=== PATIENT | male | born 1960 | race Caucasian/White ===

== ENCOUNTER 2017-12-21 14:41 | Emergency (ER) | payer MEDICARE, OTHER ==
[~2017-12-21] VITALS: Ht 185.4 cm; Wt 77.1 kg
[2017-12-21 16:10] LABS: Basophils # (auto) 0.1 uL; Eosinophils # (auto) 0.2 uL; Hemoglobin 8.2 g/dL (13.5-17.5); Lymphocytes # (auto) 1.5 uL; Mean Corpuscular Volume 89.7 fL (80.0-100.0); Monocytes # (auto) 0.4 uL; Red Blood Cells 2.65 10^6/uL (4.5-5.90); White Blood Cell 6.4 10^3/uL (4.4-10.8)
[2017-12-21 16:13] LABS: Basophils % (auto) 1.1 % (0.0-2.0); Eosinophils % (auto) 3.1 % (0.0-7.0); Hematocrit 23.8 % (41.0-53.0); Lymphocytes % (auto) 23.4 % (10.0-50.0); Mean Corpuscular Hemoglobin 30.9 pg (28.0-32.0); Mean Corpuscular Hgb Conc. 34.5 g/dL (32.0-36.0); Monocytes % (auto) 6.8 % (0.0-12.0); Neutrophils # (auto) 4.2 uL; Neutrophils % (auto) 65.6 % (37.0-80.0); Platelet Count (auto) 355 10^3/uL (140-450); Red Cell Distribution Width 16.5 % (11.8-14.3)
[2017-12-21 16:23] LABS: INR 0.98 (0.9-1.15); Partial Thromboplastin Time 24.5 sec (23.78-33.04); Prothrombin Time 10.5 sec (9.27-12.13)
[2017-12-21 17:34] LABS: Albumin 3.4 g/dL (3.4-5.0); Calcium 9.4 mg/dL (8.5-10.1); Potassium 4.4 mmol/L (3.5-5.1)
[2017-12-21 17:42] LABS: Bilirubin, Total 0.5 mg/dL (0.2-1.0); Total Protein 6.6 g/dL (6.4-8.2)
[2017-12-21] MEDS ORDERED: ONDANSETRON HCL 4 MG/2 ML VIAL ONE (17:59)
[2017-12-21] MEDS ORDERED: MORPHINE SULF INJ 2 MG/ML SYRINGE 1ML ONE (17:59)
[2017-12-21] MEDS ORDERED: MORPHINE SULF INJ 2 MG/ML SYRINGE 1ML IV ONE (18:00)
[2017-12-21] MEDS ORDERED: ONDANSETRON HCL 4 MG/2 ML VIAL IV ONE ×2 (18:00→20:15)
[2017-12-21] MEDS ORDERED: HYDROmorphone HCL 2 MG/ML VL IV ONE (20:15)
[2017-12-21 21:15] VITALS: BP 110/65
== END 2017-12-21 21:01 | disposition left against medical advice (07) ==
LOC: ER 14:41
DX: M54.2 Cervicalgia (principal); I13.2 Hypertensive heart and chronic kidney disease with heart failure and with stage 5 chronic kidney disease, or end stage renal disease; N18.6 End stage renal disease; R41.82 Altered mental status, unspecified; D64.9 Anemia, unspecified; Z99.2 Dependence on renal dialysis
CPT/HCPCS: 36415; 70450; 70490; 71045; 80053; 83880; 84484; 85025; 85610; 85730; 96374; 96375; 99285; J2270; J2405

== ENCOUNTER 2017-12-22 13:20 | Emergency (ER) | payer MEDICARE, OTHER ==
[~2017-12-22] VITALS: Ht 172.7 cm; Wt 56.7 kg
[2017-12-22] MEDS ORDERED: MORPHINE SULFATE 4 MG/ML SYR/VIAL IV ONE (15:15)
[2017-12-22] MEDS ORDERED: ONDANSETRON HCL 4 MG/2 ML VIAL IV ONE (15:15)
[2017-12-22] MEDS ORDERED: HYDROmorphone HCL 2 MG/ML VL IV ONE (16:00)
[2017-12-22 17:28] VITALS: BP 107/61
== END 2017-12-22 18:26 | disposition short-term general hospital (02) ==
LOC: ER 13:20 → EDBD 13:20 → ER 18:26
DX: M48.52XA Collapsed vertebra, not elsewhere classified, cervical region, initial encounter for fracture (principal); I13.2 Hypertensive heart and chronic kidney disease with heart failure and with stage 5 chronic kidney disease, or end stage renal disease; I50.9 Heart failure, unspecified; N18.6 End stage renal disease; Z99.2 Dependence on renal dialysis
CPT/HCPCS: 96374; 96375; 99285; J1170; J2270; J2405